=== PATIENT | female | born 1955 | race Caucasian/White ===

== ENCOUNTER 2017-04-24 15:05 | Emergency (ER) | payer OTHER ==
[2017-04-24 16:19] LABS: BASOPHILS 0.5 %; BASOPHILS ABSOLUTE 0.06 10/3/uL (0.0-0.16); EOSINOPHILS 1.5 %; EOSINOPHILS ABSOLUTE 0.18 10/3/uL (0.0-0.53); HEMOGLOBIN 13.3 g/dL (12.0-16.0); IMMATURE GRANULOCYTES 0.7 %; IMMATURE GRANULOCYTES ABSOLUTE 0.08 10/3/uL (0.0-0.11); LYMPHOCYTES ABSOLUTE 2.01 10/3/uL (0.67-4.30); MANUAL DIFF NO %; MEAN CORPUS HGB CONC 31.7 g/dL (32.0-36.0); MEAN CORPUSCULAR HEMOGLOB 27.8 pg (26.0-34.0); MEAN CORPUSCULAR VOLUME 87.9 fL (80-100); MEAN PLATELET VOLUME 11.3 fL (9.2-13.0); MONOCYTES 4.2 %; MONOCYTES ABSOLUTE 0.49 10/3/uL (0.21-1.20); NEUTROPHILS 76.1 %; NEUTROPHILS ABSOLUTE 8.97 10/3/uL (2.02-8.40); RBC DISTRIBUTION WIDTH 13.7 % (12.0-16.0); RED CELL COUNT 4.78 10/6/uL (4.0-5.6); WHITE BLOOD CELLS 11.8 10/3/uL (4.5-10.5)
[2017-04-24 16:37] LABS: ALBUMIN 3.3 G/DL (3.5-5.0); ALKALINE PHOSPHATASE 79 U/L (45-117); BUN (BLOOD UREA NITROGEN) 16 MG/DL (6-23); CALCIUM, SERUM 9.6 MG/DL (8.5-10.4); CHEST PAIN PROFILE TAT 0 Hrs 24 Mins; CHLORIDE, SERUM 107 MMOL/L (96-112); CO2 (CARBON DIOXIDE) 24 MMOL/L (24-34); CREATININE 1.13 MG/DL (0.55-1.02); DIRECT BILIRUBIN < 0.1 MG/DL (0.0-0.4); GFR AFRICAN AMERICAN 61 ML/MIN (>=60); GFR NON AFRICAN AMERICAN 52 ML/MIN (>=60); GLUCOSE, SERUM 222 MG/DL (60-99); INDIRECT BILIRUBIN(NOT ORDER) 0.3 MG/DL (0.1-0.9); POTASSIUM, SERUM 4.1 MMOL/L (3.5-5.3); SGOT(AST) 22 U/L (5-40); SGPT(ALT) 27 U/L (5-65); SODIUM, SERUM 140 MMOL/L (135-148); TOTAL BILIRUBIN 0.4 MG/DL (0-1.2); TROPONIN I <0.02 NG/ML (<0.05)
[2017-04-24 17:05] LABS: PLATELET COUNT 198 10/3/uL (150-400)
== END 2017-04-24 18:37 | disposition home or self-care (01) ==
LOC: ER 15:05
PROVIDERS: Nurse Practitioner Family
DX: R51 Headache (principal); R42 Dizziness and giddiness; I12.9 Hypertensive chronic kidney disease with stage 1 through stage 4 chronic kidney disease, or unspecified chronic kidney disease; N18.9 Chronic kidney disease, unspecified; F41.9 Anxiety disorder, unspecified; F32.9 Major depressive disorder, single episode, unspecified; E11.22 Type 2 diabetes mellitus with diabetic chronic kidney disease; Z87.891 Personal history of nicotine dependence
CPT/HCPCS: 70450; 71010; 80048; 80076; 81001; 83605; 83690; 83735; 83880; 84484; 85025; 85610; 85730; 87040; 93005; 96374; 99285; J1200; J2765